=== PATIENT | female | born 1960 | race Caucasian/White ===

== ENCOUNTER 2018-02-24 11:10 | Inpatient (IN) ==
--- NOTE | 2018-02-21 21:40 | Discharge Summary ---
<Yun Bowers - Last Filed: 02/21/18 21:38> Date of Encounter: 02/21/18 - Discharge Diagnosis (1) Status post total left knee replacement Priority: Primary Status: Acute (2) Arthritis of left knee Priority: Primary Status: Chronic (3) Hypothyroid Priority: Secondary Status: Chronic Qualifiers: Hypothyroidism type: unspecified Qualified Code(s): E03.9 - Hypothyroidism , unspecified (4) Obesity Priority: Secondary Status: Chronic Qualifiers: Obesity type: unspecified obesity type Obesity classification: unspecified obesity classification Serious obesity comorbidity presence: unspecified whether serious comorbidity present Qualified Code(s): E66.9 - Obesity, unspecified - Hospital Course Hospital course: Ms. Byrd is a 57 year old female - Time Spent with Patient Total time spent providing and/or coordinating discharge services: - Discharge Medications Home Medications: Aspirin Enteric Coated [Aspirin EC] 325 mg PO BID 10 Days #20 tablet. [Rx] OxyCODONE Immed Rel [Roxicodone 5 MG] 5 mg PO Q6HR PRN 7 Days #28 tablet [Rx] Aspirin Enteric Coated [Aspirin EC] 325 mg PO BID #20 tablet. 02/24/18 [Rx] Levothyroxine [Synthroid] [place] [address]/24/18 [History] Meloxicam [Mobic] 15 mg PO DAILY 02/24/18 [History] OxyCODONE Immed Rel [Roxicodone 5 MG] 5 mg PO Q4HR PRN 5 Days #20 tablet [Rx] Allergies/Adverse Reactions: 3 Allergy/AdvReac Type Severity Reaction Status Date / Time No Known Allergies Allergy Verified 02/24/18 11:53 Primary care physician: Shara Rizvi CNP - Patient Status Disposition: Home Health Service Condition: Good - Discharge Instructions Follow Up With: Shara Rizvi CNP [Primary Care Provider] - <Fortunato Villegas - Last Filed: 02/26/18 06:54> Orders not resulted at time of discharge: Pending orders 02/22/18 01:00 XR knee LT limited 1-2V [XR] Routine Hemoglobin and Hematocrit [HEME] Routine 02/24/18 11:45 PTT [Activated Partial Thrombo Time] [COAG] Stat Prothrombin Time INR [COAG] Stat Date of Encounter: 02/26/18 Time of Encounter: 06:53 - Discharge Diagnosis (1) Obesity (BMI 35.0-39.9 without comorbidity) Priority: Secondary Status: Chronic (2) Arthritis of left knee Priority: Primary Status: Chronic (3) Hypothyroid Priority: Secondary Status: Chronic Qualifiers: Hypothyroidism type: unspecified Qualified Code(s): E03.9 - Hypothyroidism , unspecified (4) Status post total left knee replacement Priority: Primary Status: Acute - Hospital Course Hospital course: Ms. Byrd is a 57 year old female Status post left total knee replacement The patient had an uneventful postoperative course. They received antibiotics and physical therapy and were discharged in stable condition. There will follow -up in the office in 2 weeks. - Time Spent with Patient Total time spent providing and/or coordinating discharge services: Primary care physician: Shara Rizvi CNP - Patient Status Functional capacity at discharge: uses cane/walker Overall status at discharge: patient is progressing back to baseline
[2018-02-24] MEDS ORDERED: CeFAZolin Syr 2,000MG/20 ML 2,000 MG/20 ML SYRINGE IVPB ONE (11:55)
--- NOTE | 2018-02-24 11:56 | History & Physical Report ---
Date of Encounter: 02/24/18 Time of Encounter: 11:56 24 Hour HP Update - Instructions Instructions: If the History and Physical is less than 30 days old and was completed prior to A.M. admission and or procedure and has NOT been updated on calendar day of procedure please complete this update prior to performing procedure. - Update Patient reports changes in Medical Condition: No Changes in examination, assessment, or condition: No Changes in Medication: No Preop tests/diagnostics Reviewed: Yes Surgery Remains Indicated: Yes Consent for Planned Operative Procedure(s) Verified: Yes - Pre-Operative Checklist Preoperative Checklist Indicated: No Prophylactic Antibiotic Ordered: Yes Is VTE Prophylaxis Indicated?: Yes
[2018-02-24] MEDS ORDERED: Ringers Solution, Lactated 1,000 ML IVC SCH ×2 (12:00→17:12)
[2018-02-24 12:11] LABS: Prothrombin Time 10.8 Seconds (9.4-12.1)
[2018-02-24 12:13] LABS: Activated Partial Thrombo Time 31.7 Seconds (26.0-36.0)
--- NOTE | 2018-02-24 13:08 | Anesthesia Evaluation PreOp ---
Date of Encounter: 02/24/18 Time of Encounter: 13:06 - Past History Planned Operation: Robotic left total knee replacement Cardiac History: Denies any Significant Hx Pulmonary History: Denies Any Significant HX FASHION MARKETER History: Denies Any Significant HX Other Medical History: Thyroid (hypothyroid) Anesthesia History: No Prior Anesthetic Complications, Past Anesthesia (csection , BPS) Alcohol Use: none Drug use: none Medications and Allergies Aspirin Enteric Coated [Aspirin EC] 325 mg PO BID 10 Days #20 tablet. [Rx] OxyCODONE Immed Rel [Roxicodone 5 MG] 5 mg PO Q6HR PRN 7 Days #28 tablet [Rx] Levothyroxine [Synthroid] 100 mcg PO 0630 02/24/18 [History] Meloxicam [Mobic] 15 mg PO DAILY 02/24/18 [History] 3 Allergy/AdvReac Type Severity Reaction Status Date / Time No Known Allergies Allergy Verified 02/24/18 11:53 - Meds/Allergy Pre-op Review Medications Reviewed: Yes Allergies Reviewed: Yes Beta Blockers on Current Med List: No Anesthesia Results - Labs Laboratory Tests 02/16/18 02/16/18 02/24/18 09:44 09:44 11:45 WBC 3.6 L Hgb 12.6 Hct 37.0 Plt Count 284 PT 10.8 Sodium 134 L Potassium 4.3 Chloride 103 Carbon Dioxide 27 BUN 25 H Creatinine 0.71 Est GFR ( Amer) > 60 Est GFR (Non-Af Amer) > 60 BUN/Creatinine Ratio 35 H Anesthesia Exam O2 Sat Height 1.52 m Height 1.52 m Height 1.52 m Weight 83.461 kg Weight 83.461 kg Weight 83.461 kg O2 Sat by Pulse Oximetry 95 O2 Sat by Pulse Oximetry 95 Vital Signs Temp Pulse Resp BP Pulse Ox 98.6 F 67 18 117/77 95 02/24/18 11:37 02/24/18 11:37 02/24/18 11:37 02/24/18 11:37 02/24/18 11:37 Height: 60" Weight: 182lbs NPO (# of Hours): >8 - HEENT Pupil (Motor): Pupils equal, EOMI Mallampati: III Teeth: Normal Oral Opening: Greater than 3 - FASHION MARKETER LOC: Oriented FASHION MARKETER Motor: Normal RUE, Normal LUE, Normal RLE, Normal LLE, Normal Face FASHION MARKETER Sensory: Normal: RUE, LUE, RLE, LLE, Face - Cardiac Rhythm: Regular - Pulmonary Breath Sounds: bilateral Clear Respiratory Effort: Symmetrical Anesthesia Assess/Plan ASA Score: 2 Modified Sonia Scale for Level of Consciousness: Cooperative, oriented, and tranquil Anesthetic Plan: General, Regional (L femoral nn block) Monitoring Plan: Standard Monitors Recovery Plan: PACU
[2018-02-24] MEDS ORDERED: Acetaminophen IV 1,000 MG/100 ML INFUS..BTL ONE (13:29)
[2018-02-24] MEDS ORDERED: Tetracaine/PF 20 MG/2 ML AMPUL ONE (13:51)
[2018-02-24] MEDS ORDERED: ROPIVACAINE HCL/PF 0.5% 30 ML VIAL ONE (13:51)
[2018-02-24] MEDS ORDERED: Bupivacaine/Clonidine Syringe 1 EACH SYRINGE ONE (13:51)
[2018-02-24] MEDS ORDERED: *HR* Midazolam HCl 2 MG/2 ML VIAL ONE (14:05)
[2018-02-24] MEDS ORDERED: *HR* FentaNYL (PF) 100 MCG/2 ML VIAL ONE (14:05)
[2018-02-24] MEDS ORDERED: Ethanol\\Acetic Acid\\Na Ace\\Ben 1,000 ML IRRIG.SOLN IR ONE (14:29)
[2018-02-24] MEDS ORDERED: *HR* Propofol 200 MG/20 ML VIAL IVP ONE (14:52)
[2018-02-24] MEDS ORDERED: Ondansetron 4 MG/2 ML VIAL ONE (15:04)
[2018-02-24] MEDS ORDERED: Dexamethasone 4 MG/ML VIAL ONE (15:04)
[2018-02-24] MEDS ORDERED: Naloxone 0.4 MG/ML INJ IVP PRN ×2 (15:10→17:12)
[2018-02-24] MEDS ORDERED: Ondansetron 4 MG/2 ML VIAL IVP PRN ×2 (15:10→17:12)
[2018-02-24] MEDS ORDERED: *HR* Promethazine 25 MG/ML VIAL IVP PRN (15:10)
--- NOTE | 2018-02-24 15:56 | Orthopedic Operative Note ---
Date of procedure: 02/24/18 Pre-op diagnosis: Left knee arthritis Post-op diagnosis: same Procedure: Procedure: Left robotic-assisted Total knee replacement Estimated blood loss: 200 cc Hardware: Metal and polyethylene replacement. [place] Femur: 2 Tibia: 2 TS insert: 9 Patella: 36 Exam Under anesthesia: 20 degree flexion contracture 11 degree varus as calculated by the robot full flexion and no instability Procedural Notes: Grade 4 arthritic changes all 3 compartments Operative procedure: The patient was brought to the operating room and placed on the operating room table. After general anesthesia was administered the operative knee was examined. Findings were noted in the exam under anesthesia. The operative extremity was prepped and draped in sterile surgical fashion. The patient received IV antibiotics prior to skin incision. A standard midline incision was made centered over the patella. The incision was made through the skin and subcutaneous tissue. A medial parapatellar tendon approach was performed. Care was taken to preserve tissue along the medial aspect of the patella. And to protect the patella tendon. The deep MCL was released off the medial tibia. The infra patella fat pad was excised. The patella was everted and cut was made at the level of the insertion of the quadriceps and patella tendon. The patella was sized to a 36 the guide was seated and the lug holes are drilled. Knee was brought into flexion. Patient noted to have Steinmann pins were placed in the tibia and the femur for the tibial and femoral arrays respectively. Checkpoints were also placed in the tibia and the femur for calculation purposes. The knee including the femur and the tibial registered. Osteophytes, ACL and PCL were excised at this point. Extension and flexion were assessed with a valgus stress components were adjusted on the computer to balance the knee. Femoral cuts were made first with robotic assistance, these included the anterior cut posterior cuts chamfer cuts. Tibial cut was then performed with robotic assistance as well. Bone fragments were removed, as well as the medial and lateral meniscus. The size 2 to femoral guide was seated box cut was made lug holes are drilled. The size 2 to tibial tray was seated and prepared with the fin cutter. Trial reduction with the 9 TS Janiya revealed extension of 0 degree and 5 degree varus full flexion. No varus valgus instability. Trial reduction revealed excellent patella tracking. All trial components were removed all bony surfaces were irrigated. The Tibia was seated followed by the femur, The Janiya size 9 was seated and secured patella. Patient had similar findings for motion and stability. The knee was then irrigated out with 2 L of pulse irrigation. The extensor mechanism was closed with #2 FiberWire suture and #2 PDS suture. The subcutaneous tissue was then irrigated and closed deep with #1 PDS suture superficially with 0 PDS suture and skin was closed with zip tie The patient was then placed in a sterile dressing and a postoperative brace extubated and transferred to recovery room in stable condition. Anesthesia: GETA Surgeon: Fortunato Villegas Was there an video library assistant present: No Estimated blood loss (cc): 200 Condition: stable Disposition: PACU
[2018-02-24] MEDS: *HR* Meperidine 25 MG/ML SYRINGE IVP PRN ×2 (16:10→16:25)
[2018-02-24] MEDS: *HR* HYDROmorphone (PF) 1 MG/ML SYRINGE IVP PRN ×2 (16:11→16:16)
[2018-02-24 16:37] LABS: Hematocrit 33.5 % (35.3-44.9); Hemoglobin 11.3 g/dL (11.5-15.4)
--- NOTE | 2018-02-24 16:46 | Anesthesia Evaluation Post Op ---
Date of Encounter: 02/24/18 Time of Encounter: 16:45 - Vital Signs Vital Signs: Vital Signs/O2 Sat, Most Current Temp Pulse Resp BP Pulse Ox 98.2 F 56 16 106/71 97 02/24/18 16:32 02/24/18 16:32 02/24/18 16:32 02/24/18 16:32 02/24/18 16:32 - Lungs Lungs: Clear Ascult./Percussion - Airway Airway: Non-obstructed - Cardiovascular Regular Rate - Mental Status Mental Status: Alert & Oriented, Answers Appropriately - Pain Pain Scale: 5 Pain Scale used: Numeric (1 - 10) - Nausea Vomiting Nausea Vomiting: Not Present - Hydration Hydration: Ice chips, Has not voided - Discharge PostOp Status: Transfer Patient to floor
[2018-02-24] MEDS ORDERED: Temazepam 15 MG CAPSULE PO PRN (17:12)
[2018-02-24] MEDS ORDERED: Sennosides 8.6 MG TABLET PO PRN (17:12)
[2018-02-24] MEDS ORDERED: *HR* OxyCODONE/APAP 5/325 TABLET PO PRN (17:12)
[2018-02-24] MEDS ORDERED: MOM Conc 10 ML UD.LIQ PO PRN (17:12)
[2018-02-24] MEDS ORDERED: ceFAZolin 2,000 MG in 0.9 % Sodium Chloride 100 ML IVPB SCH (17:12)
[2018-02-24] MEDS ORDERED: *HR* Enoxaparin 30 MG/0.3 ML SYRINGE SQ SCH (18:00)
[2018-02-24] MEDS: *HR* Enoxaparin 30 MG/0.3 ML SYRINGE SQ SCH (19:11)
[2018-02-24] MEDS: ceFAZolin 2,000 MG in 0.9 % Sodium Chloride 100 ML IVPB SCH (23:24)
[2018-02-25] MEDS: *HR* Enoxaparin 30 MG/0.3 ML SYRINGE SQ SCH ×2 (05:11→16:59)
[2018-02-25] MEDS: *HR* OxyCODONE Immed Rel 5 MG TABLET PO PRN ×4 (05:11→18:12)
[2018-02-25 06:09] LABS: BUN/Creatinine Ratio 32 (6-26); Blood Urea Nitrogen 16 mg/dL (6-20); Carbon Dioxide 24 mEq/L (23-29); Chloride 106 mEq/L (98-107); Glucose 110 mg/dL (70-105); Osmolality,Calculated 288 (280-300); Potassium 4.1 mEq/L (3.5-5.1); Sodium 138 mEq/L (136-145); eGFR For African Americans > 60 (> 60); eGFR For Non-African Americans > 60 (> 60)
[2018-02-25 06:10] LABS: Hematocrit 32.3 % (35.3-44.9); Hemoglobin 10.8 g/dL (11.5-15.4)
--- NOTE | 2018-02-25 06:43 | Orthopedics Progress Note ---
Date of Encounter: 02/25/18 Time of Encounter: 06:43 - Assessment and Plan (1) Obesity (BMI 35.0-39.9 without comorbidity) Current Visit: Yes Status: Chronic (2) Arthritis of left knee Current Visit: No Status: Chronic (3) Hypothyroid Current Visit: No Status: Chronic Qualifiers: Hypothyroidism type: unspecified Qualified Code(s): E03.9 - Hypothyroidism , unspecified (4) Status post total left knee replacement Current Visit: No Status: Acute Subjective Interval history: Patient was seen this morning doing well without complaints. Afebrile vital signs stable. Operative extremity: Neurovascularly intact Dressing clean dry and intact Calves nontender Assessment and plan: Continue with postoperative care Hematocrit 32 Objective Vital signs: Vital Signs Temp Pulse Resp BP Pulse Ox 02/25/18 03:47 97.9 F 56 18 104/70 98 02/24/18 23:41 98.5 F 55 16 110/72 96 02/24/18 20:44 97.8 F 52 16 119/78 97 02/24/18 19:38 97.9 F 57 16 103/67 98 02/24/18 18:18 98.1 F 58 16 109/71 98 02/24/18 17:50 98.2 F 49 16 113/66 97 02/24/18 17:14 98.4 F 55 17 119/68 97 02/24/18 16:52 98.1 F 56 16 105/73 98 02/24/18 16:42 58 16 109/68 98 02/24/18 16:32 98.2 F 56 16 106/71 97 02/24/18 16:22 63 16 106/68 97 02/24/18 16:12 82 16 119/82 93 02/24/18 16:02 97.4 F L 88 20 131/95 98 02/24/18 14:44 50 14 114/76 98 02/24/18 14:29 52 16 119/78 97 02/24/18 14:16 53 16 93/63 96 02/24/18 14:10 56 16 128/84 98 02/24/18 14:07 98.6 F 67 18 117/77 95 02/24/18 11:57 98.6 F 67 18 117/77 95 02/24/18 11:37 98.6 F 67 18 117/77 95 Intake and Output 02/24/18 02/24/18 02/25/18 15:59 23:59 07:59 Intake Total 120 / 120 450 / 450 400 / 400 Output Total 200 / 200 700 / 700 800 / 800 Balance -80 / -80 -250 / -250 -400 / -400 Intake: IV Fluids 120 / 120 100 / 100 Ofirmev 1,000 mg/100 ml 1,000 100 / 100 mg In 100 ml @ 0 mls/hr .ROUTE .STK-MED ONE Rx#:[id number] Ancef Syringe 2,000 MG/20 ML 2, 20 / 20 000 mg In 20 ml @ 200 mls/hr IVPB PREOP ONE Rx#:[id number] Ancef 2,000 MG In 0.9 % Sodium 100 / 100 Chloride 100 ML @ 200 mls/hr IVPB Q8H ON LICENSE OF [facility] Rx#:[id number] Oral 450 / 450 300 / 300 Output: Urine 700 / 700 800 / 800 Estimated Blood Loss 200 / 200 Other: # Voids 1 1 Weight 83.461 kg - Labs CBC & BMP: 02/25/18 04:59 02/25/18 04:59 Labs: Abnormal lab results Hgb 10.8 g/dL (11.5-15.4) L 02/25/18 04:59 Hct 32.3 % (35.3-44.9) L 02/25/18 04:59 Creatinine 0.50 mg/dL (0.60-1.20) L 02/25/18 04:59 BUN/Creatinine Ratio 32 (6-26) H 02/25/18 04:59 Glucose 110 mg/dL (70-105) H 02/25/18 04:59 - VTE Documentation of Mechanical Device: Venous foot pump, device Consult Discharge Plan - Plan Referrals: Shara Rizvi, TRUCK MECHANIC [Primary Care Provider] -
[2018-02-25] MEDS: ceFAZolin 2,000 MG in 0.9 % Sodium Chloride 100 ML IVPB SCH (07:42)
[2018-02-25] MEDS: traMADol 50 MG TABLET PO PRN ×2 (07:42→20:13)
[2018-02-25] MEDS ORDERED: Promethazine 12.5 MG in 0.9 % Sodium Chloride 50 ML IVPB PRN (08:50)
--- NOTE | 2018-02-25 09:14 | Anesthesia Procedures ---
Date of Encounter: 02/24/18 Time of Encounter: 14:30 Procedures: Anesthesia - Nerve Block Procedure Date: 02/24/18 Time: 14:30 Allergies/Adv Reactions: NKDA Surgical Procedure: Robotic LTKR Checklist: Correct Patient Identifier, Correct procedure, History checked Correct side: Left Blood Thinner: No Monitor Applied: EKG, BP, Pulse Oximetry Supplemental Oxygen via Nasal Cannula (L/min): 2 Sedation: Versed (mg): 2 Sedation: Fentanyl (mcg): 100 Indication: Post Op Analgesia (per surgeon request) Block Type: Femoral, Other (ipack) Catheter placed: No Sterile Technique: Yes Ultrasound used: Yes Anatomy identified: Yes Visual spread of Local: Yes Neuro Stimulation: Yes Nerve Stimulator Range: 0.2 - 0.4 mA Blood on Needle Aspiration: No Smooth Injection of Local: Yes Pain with Injection of Local: No Prep: Chlorhexadine Needle: 22 x 50 mm Stimuplex, 21 x 100 mm Stimuplex Local: 0.25% Bupivicaine w/Clonidine 20 mcg/cc (20ml), Tetracaine (20mg), Ropivacaine (0.5% 30ml) Complications: None/effective block Vitals: see nursing notes
[2018-02-25] MEDS ORDERED: *HR* Promethazine 25 MG/ML VIAL ONE (09:17)
--- NOTE | 2018-02-25 13:34 | Event Note ---
Date of Encounter: 02/25/18 Time of Encounter: 17:36 PCR- POD#1 L TKR robotic 02/24 Bakari PCR - Patient seen at bedside. Labwork and medications reviewed. H/H: 10.8/32.3 Pain control: Adequate Participating in PT. All questions and concerns addressed. Educated on use of incentive spirometer, ambulation, and hydration. Patient educated on post-operative restrictions and care. Addressed: Nausea - phenergan added with complete relief of symptoms D/C plan: PT recommending ECF - will see their reevaluation tomorrow morning then determine.
[2018-02-26 01:53] LABS: Hematocrit 31.2 % (35.3-44.9); Hemoglobin 10.5 g/dL (11.5-15.4)
[2018-02-26 02:16] LABS: BUN/Creatinine Ratio 29 (6-26); Blood Urea Nitrogen 16 mg/dL (6-20); Calcium 8.6 mg/dL (8.6-10.3); Carbon Dioxide 26 mEq/L (23-29); Chloride 106 mEq/L (98-107); Glucose 112 mg/dL (70-105); Osmolality,Calculated 286 (280-300); Potassium 3.8 mEq/L (3.5-5.1); Sodium 137 mEq/L (136-145); eGFR For African Americans > 60 (> 60); eGFR For Non-African Americans > 60 (> 60)
[2018-02-26] MEDS: *HR* OxyCODONE Immed Rel 5 MG TABLET PO PRN ×2 (03:58→09:57)
[2018-02-26] MEDS: *HR* Enoxaparin 30 MG/0.3 ML SYRINGE SQ SCH (06:17)
[2018-02-26 06:50] VITALS: BP 110/68
--- NOTE | 2018-02-26 06:55 | Orthopedics Progress Note ---
Date of Encounter: 02/26/18 Time of Encounter: 06:54 - Assessment and Plan (1) Obesity (BMI 35.0-39.9 without comorbidity) Current Visit: Yes Status: Chronic (2) Arthritis of left knee Current Visit: No Status: Chronic (3) Hypothyroid Current Visit: No Status: Chronic Qualifiers: Hypothyroidism type: unspecified Qualified Code(s): E03.9 - Hypothyroidism , unspecified (4) Status post total left knee replacement Current Visit: No Status: Acute Subjective Interval history: Patient was seen this morning doing well without complaints. Afebrile vital signs stable. Operative extremity: Neurovascularly intact Dressing clean dry and intact Calves nontender Assessment and plan: Continue with postoperative care Hematocrit 31 discharged today Objective Vital signs: Vital Signs Temp Pulse Resp BP Pulse Ox 02/26/18 06:48 98.2 F 75 15 110/68 97 02/26/18 03:39 99.3 F 66 16 119/83 98 02/25/18 23:12 98.6 F 64 16 118/76 97 02/25/18 18:48 99.5 F 64 16 115/66 99 02/25/18 15:38 99.3 F 02/25/18 15:27 99.7 F H 63 16 124/75 97 02/25/18 11:03 99.2 F 63 18 129/93 99 Intake and Output 02/25/18 02/25/18 02/26/18 15:59 23:59 07:59 Intake Total 1180 / 1180 500 / 500 250 / 250 Balance 1180 / 1180 500 / 500 250 / 250 Intake: Oral 1180 / 1180 500 / 500 250 / 250 Other: Meal Lunch Percent of Meal Consumed 75% # Voids 2 1 1 - Labs CBC & BMP: 02/26/18 01:32 02/26/18 01:32 Labs: Abnormal lab results Hgb 10.5 g/dL (11.5-15.4) L 02/26/18 01:32 Hct 31.2 % (35.3-44.9) L 02/26/18 01:32 Creatinine 0.55 mg/dL (0.60-1.20) L 02/26/18 01:32 BUN/Creatinine Ratio 29 (6-26) H 02/26/18 01:32 Glucose 112 mg/dL (70-105) H 02/26/18 01:32 - VTE Documentation of Mechanical Device: Venous foot pump, device Consult Discharge Plan - Plan Referrals: Shara Rizvi, CVT TECH [Primary Care Provider] -
== END 2018-02-26 11:41 | disposition home health service (06) | DRG 470 ==
LOC: SAMDAY 11:10 → 3NENU 17:00
PROVIDERS: ADMIT Orthopaedic Surgery; ATTEND Orthopaedic Surgery